=== PATIENT | female | born 1935 | race Hispanic/Latino ===

== ENCOUNTER 2016-07-07 17:27 | Emergency (ER) | payer MEDICARE ==
[2016-07-07 18:05] VITALS: BP 157/73
--- NOTE | 2016-07-07 18:12 | Emergency Department Report ---
Chief Complaint: Chest Pain Stated Complaint: CHEST PAIN/NOSE BLEED Time Seen by Provider: 07/07/16 18:07 - HPI History of Present Illness: 81-year-old female comes in for complaint of chest pain shortness of breathing weakness nausea. She reports she just has not been feeling good over the past few weeks. She has a past medical history diabetes, cancer, heart attack, hysterectomy laser eye surgery. Patient reports slight nausea no vomiting she just feels like she is dry. - Exam Vital Signs: Vital Signs 07/07/16 17:58 Temperature 98.5 F Pulse Rate 57 L Respiratory 18 Rate Blood Pressure 157/73 O2 Sat by Pulse 98 Oximetry Physical Exam: 81 patient alert and oriented 3 cardiovascular S1-S2 bradycardic heart murmur appreciated sounds like aortic stenosis, respiratory clear to auscultation bilateral area abdomen soft nontender, extremities no edema appreciated MSE screening note: Focused history and physical exam performed. Due to findings the following was ordered: CBC cMP UA urine culture ordered patient be evaluated in the main ER ED Disposition for MSE Condition: Stable
[2016-07-07 19:20] LABS: Bacteria,Urine 1+ /HPF (Negative); Bilirubin,Urine NEG (Negative); Blood,Urine NEG (Negative); Ketones,Urine NEG (Negative); Leukocyte Esterase,Urine NEG (Negative); Mucus,Urine FEW /HPF; Nitrite,Urine NEG (Negative); Urobilinogen,Urine < 2.0 mg/dL (<2.0); WBC,Urine < 1.0 /HPF (0.0-6.0)
[2016-07-07 19:21] LABS: Basophils % (Auto) 0.5 % (0.0-1.8); Eosinophils % (Auto) 3.6 % (0.0-4.3); Hematocrit 39.7 % (30.3-42.9); Hemoglobin 13.2 gm/dl (10.1-14.3); Mean Corpuscular HGB Conc 33 % (30-34); Mean Corpuscular Hemoglobin 35 pg (28-32); Mean Corpuscular Volume 105 fl (79-97); Red Blood Count 3.79 M/mm3 (3.65-5.03); Red Cell Distribution Width 13.7 % (13.2-15.2); White Blood Count 4.9 K/mm3 (4.5-11.0)
[2016-07-07 19:32] LABS: Albumin 3.7 g/dL (3.9-5); Albumin/Globulin Ratio 1.1 %; BUN/Creatinine Ratio 16.66; Bilirubin,Total 0.3 mg/dL (0.1-1.2); Calcium 9.4 mg/dL (8.4-10.2); Potassium 4.4 mmol/L (3.6-5.0); Total Protein 7.1 g/dL (6.3-8.2)
[2016-07-07 19:50] LABS: Platelet Count 108 K/mm3 (140-440)
--- NOTE | 2016-07-09 01:46 | ED Elopement Review ---
ED Pt Elopement review - Results review Lab results: Laboratory Tests 07/07/16 07/07/16 07/07/16 19:00 19:09 19:09 WBC 4.9 RBC 3.79 Hgb 13.2 Hct 39.7 MCV 105 H MCH 35 H MCHC 33 RDW 13.7 Plt Count 108 L Lymph % (Auto) 27.4 Lamb % (Auto) 11.8 H Eos % (Auto) 3.6 Baso % (Auto) 0.5 Lymph # 1.3 Lamb # 0.6 Eos # 0.2 Baso # 0.0 Seg Neutrophils % 56.7 Seg Neutrophils # 2.8 Sodium 138 Potassium 4.4 Chloride 99.0 Carbon Dioxide 30 Anion Gap 13 BUN 20 H Creatinine 1.2 Estimated GFR 43 BUN/Creatinine Ratio 16.66 Glucose 239 H Calcium 9.4 Total Bilirubin 0.3 AST 84 H ALT 42 Alkaline Phosphatase 124 Total Protein 7.1 Albumin 3.7 L Albumin/Globulin Ratio 1.1 Urine Color Yellow Urine Turbidity Clear Urine pH 6.0 Ur Specific [place] 1.017 Urine Protein 100 mg/dl Urine Glucose (UA) 150 Urine Ketones Neg Urine Blood Neg Urine Nitrite Neg Urine Bilirubin Neg Urine Urobilinogen < 2.0 Ur Leukocyte Esterase Neg Urine WBC (Auto) < 1.0 Urine RBC (Auto) 1.0 U Epithel Cells (Auto) 5.0 Urine Bacteria (Auto) 1+ Urine Mucus Few - Call Back decision Pt Call Back Decision: Pt to F/U with PMD
== END 2016-07-07 20:09 | disposition left against medical advice (07) ==
LOC: ED 17:27
DX: R07.9 Chest pain, unspecified (principal); R06.02 Shortness of breath; R11.0 Nausea; Z53.21 Procedure and treatment not carried out due to patient leaving prior to being seen by health care provider
CPT/HCPCS: 36415; 80053; 81001; 85025; 87086; 93005; 93010